=== PATIENT | female | born 1975 | race Native Hawaiian/Other Pacific Islander ===

== ENCOUNTER 2019-12-12 08:41 | Outpatient (CLI) | payer BC | END 2019-12-12 22:25 | disposition home or self-care (01) | LOC: MAMMO 08:41 | DX: Z12.31 Encounter for screening mammogram for malignant neoplasm of breast (principal) ==

== ENCOUNTER 2021-01-31 10:18 | Outpatient (CLI) | payer BC | END 2021-01-31 18:59 | disposition home or self-care (01) | LOC: MAMMO 10:18 | PROVIDERS: ATTEND Obstetrics & Gynecology | DX: Z12.31 Encounter for screening mammogram for malignant neoplasm of breast (principal) ==

== ENCOUNTER 2022-08-12 11:40 | Outpatient (CLI) | payer BC | END 2022-08-12 18:54 | disposition home or self-care (01) | LOC: RAD 11:40 | PROVIDERS: ATTEND Internal Medicine | DX: R91.8 Other nonspecific abnormal finding of lung field (principal) ==